=== PATIENT | female | born 1970 | race African-American/Black ===

== ENCOUNTER 2016-05-29 23:43 | Emergency (ER) | payer OTHER ==
[~2016-05-29] VITALS: Ht 162.6 cm; Wt 59.0 kg
[2016-05-30] MEDS ORDERED: IRON325 PO (00:25)
[2016-05-30] MEDS ORDERED: TRILIPIX45 MG PO (00:25)
[2016-05-30 00:47] LABS: ABSOLUTE NEUTROPHILS 3.4 thou/uL (1.4-8.2); HEMOGLOBIN 10.3 gm/dL (12.0-15.0); LYMPHOCYTES 17.8 % (24.0-44.0); MCH 21.5 pg (26.0-34.0); MCHC 31.3 g/dL (28.0-37.0); MCV 68.7 fL (80.0-100.0); MONOCYTES 7.1 % (1.0-8.0); PLATELET COUNT 276 thou/uL (150-400); POLYS 74.1 % (36.0-66.0); WBC 4.5 thou/uL (4.0-11.0)
[2016-05-30 00:49] LABS: MANUAL DIFF NO
[2016-05-30 00:50] LABS: CALCIUM 9.3 mg/dL (8.5-10.1); CREATININE 0.9 mg/dL (0.6-1.3); POTASSIUM 3.6 mmol/L (3.5-5.1)
[2016-05-30 00:52] LABS: URINE BILIRUBIN NEGATIVE (Negative); URINE BLOOD 3+ (Negative); URINE COLOR YELLOW; URINE GLUCOSE-RANDOM* NEGATIVE (Negative); URINE KETONES NEGATIVE (Negative); URINE LEUKOCYTES-REFLEX NEGATIVE (Negative); URINE PROTEIN (DIPSTICK) 1+ (Negative); URINE UROBILINOGEN 0.2 E.U./dl (0.2-1.0)
[2016-05-30 01:03] LABS: AMP/METHAMP Negative (Negative); BARBITURATES Negative (Negative); BENZODIAZEPINES POSITIVE (Negative); COCAINE Negative (Negative); METHADONE Negative (Negative); OPIATES Negative (Negative); PCP Negative (Negative); THC Negative (Negative)
[2016-05-30 01:08] LABS: SQUAMOUS 4-10 Moderate /LPF (0-3)
[2016-05-30 01:09] LABS: CASTS None Seen /LPF (None Seen); CRYSTALS None Seen /LPF (None Seen); URINE RBC 0-2 Rare /HPF (0-2); URINE WBC-REFLEX None Seen /HPF (0-5)
[2016-05-30 01:18] LABS: ANISOCYTOSIS 1+; HYPOCHROMASIA 2+; MICROCYTES 2+; POLYCHROMASIA OCCASIONAL
[2016-05-30 03:16] VITALS: BP 125/85
== END 2016-05-30 03:06 ==
LOC: ER 23:43
PROVIDERS: Emergency Medicine
DX: F41.9 Anxiety disorder, unspecified (principal); Z88.5 Allergy status to narcotic agent; F10.99 Alcohol use, unspecified with unspecified alcohol-induced disorder